=== PATIENT | female | born 1955 | race Caucasian/White ===

== ENCOUNTER 2020-04-14 09:35 | Inpatient (IN) | payer MEDICARE ==
[2020-03-04 11:16] LABS: BILIRUBIN NEGATIVE (NEGATIVE); KETONE NEGATIVE (NEGATIVE); NITRITE NEGATIVE (NEGATIVE); UROBILINOGEN NORMAL mg/dL (< 2)
[2020-03-04 13:27] LABS: BASOPHILS 0.6 % (0-2); EOSINOPHILS 2.1 % (0-7); HEMATOCRIT 45.5 % (36.0-48.0); HEMOGLOBIN 14.4 g/dL (12-16); LYMPHOCYTES 26.7 % (15-50); MCH 30.1 pg (26.0-34.0); MCHC 31.6 g/dL (31.0-37.0); MCV 95.2 fL (80.0-100.0); MEAN PLATELET VOLUME 11.5 fL (7.4-10.4); MONOCYTES 13.9 % (2-11); NEUTROPHIL ABS# 1.91 10x3/uL (1.56-6.13); NEUTROPHILS 56.7 % (40-80); PLATELET COUNT 227 10x3/uL (130-400); RBC 4.78 10x6/uL (4.00-5.40); RDW 14.6 % (11.5-14.5); WBC 3.4 10x3/uL (4.8-10.8)
[2020-03-04 13:39] LABS: ANION GAP 5.4 mmol/L (8-16); CALCIUM 9.5 mg/dL (8.5-10.1); CARBON DIOXIDE 32.1 mmol/L (21.0-32.0); CREATININE - SERUM 0.9 mg/dL (0.6-1.3); POTASSIUM - SERUM 3.5 mmol/L (3.5-5.1)
[2020-03-04 13:56] LABS: APTT 28.8 SECONDS (22.8-39.4); INR 1.06 (0.85-1.17); PROTIME 12.7 SECONDS (11.6-15.0)
[2020-04-10 12:15] LABS: BASOPHILS 0.5 % (0-2); EOSINOPHILS 2.9 % (0-7); HEMOGLOBIN 13.9 g/dL (12-16); IMMATURE GRANULOCYTES 0.3 % (0-5); LYMPHOCYTE ABS# 1.44 10x3/uL (1.18-3.74); LYMPHOCYTES 38.5 % (15-50); MCH 29.7 pg (26.0-34.0); MCHC 31.6 g/dL (31.0-37.0); MEAN PLATELET VOLUME 10.3 fL (7.4-10.4); MONOCYTES 13.4 % (2-11); NEUTROPHIL ABS# 1.66 10x3/uL (1.56-6.13); NEUTROPHILS 44.4 % (40-80); PLATELET COUNT 251 10x3/uL (130-400); RBC 4.68 10x6/uL (4.00-5.40); RDW 14.8 % (11.5-14.5); WBC 3.7 10x3/uL (4.8-10.8)
[2020-04-10 12:23] LABS: CALC OSMOLALITY 281 mosm/kg (275-300); CALCIUM 9.2 mg/dL (8.5-10.1); CHLORIDE - SERUM 103 mmol/L (98-107); CREATININE - SERUM 0.7 mg/dL (0.6-1.3); GLUCOSE 116 mg/dL (74-106); POTASSIUM - SERUM 3.9 mmol/L (3.5-5.1); SODIUM 140 mmol/L (136-145); UREA NITROGEN 17 mg/dL (7-18); eGFR NON AFRICAN AMERICAN 89 mL/min (90-120)
[2020-04-10 12:54] LABS: INR 1.06 (0.85-1.17); PROTIME 12.8 SECONDS (11.6-15.0)
[2020-04-10 12:55] LABS: APTT 27.5 SECONDS (22.8-39.4)
[2020-04-10 13:03] LABS: BACTERIA FEW HPF (NONE SEEN); BILIRUBIN NEGATIVE (NEGATIVE); KETONE NEGATIVE (NEGATIVE); NITRITE NEGATIVE (NEGATIVE); SQUAMOUS EPITHELIAL 0-5 HPF (0-4); UROBILINOGEN NORMAL mg/dL (< 2); WHITE CELLS - URINE RARE HPF (0-4)
[2020-04-14] VITALS (9 sets, daily range): BP systolic 104–129; BP diastolic 43–76; BMI 32.7; BMI 37.3
[~2020-04-14] VITALS: Ht 172.7 cm; Wt 111.1 kg
[~2020-04-14 09:35] MED LIST: CYMBALTA30 MG PO; CYMBALTA60 MG; PIOGLITAZONE15 MG PO; ULTRAM50 MG PO; VOLTAREN75 MG PO; [UNRECOGNIZED DRUG - OTHER]
--- NOTE | 2020-04-14 14:57 | NUR ---
CAUTERY PAD PLACED ON RIGHT THIGH. PLASMA BLADE USED ON SETTING 6/8. AQUAMANTYS USED ON SETTING 170. CAUTERY PAD LOT# [id number] EXP. 08/07/2021
--- NOTE | 2020-04-14 16:27 | NUR ---
PATIENT STATES PAIN IS 8/10 STILL AFTER 2 MG OF DILAUDED. KEEPS ASKING WHEN THE PAIN MEDICINE WILL KICK IN. EDUCATED THAT 2 MG OF DILAUDED IS A LOT OF PAIN MEDICINE AND SHE MUST BE MONITORED FOR RESP DEPRE
--- NOTE | 2020-04-14 16:45 | NUR ---
RECEIVED TO ROOM 1210 A/O X3. C/O INTENSE PAIN TO LEFT KNEE. ICE APPLIED TO AREA. WILL MONITOR. SKIN INTACT EXCEPT INCISION TO LEFT KNEE WHICH HAS A DRY INTACT DRESSING IN PLACE.
--- NOTE | 2020-04-14 18:18 | NUR ---
ATE MOST OF SUPPER TRAY. CONTINUES TO C/O PAIN TO LEFT KNEE. PLACED IN CPM AT THIS TIME. AT BEDSIDE.
--- NOTE | 2020-04-14 18:53 | NUR ---
PATIENT RESTING IN BED WITH NO S/S OF DISTRESS. GUEST AT BEDSIDE. VSS. PATIENT REQUESTED PAIN MED WHEN DUE AND DENIES OTHER NEEDS AT THIS TIME. BED IN LOWEST POSITION, CALL LIGHT IN REACH, BED ALARM ON. ENCOURAGED PATIENT TO CALL WITH NEEDS.
--- NOTE | 2020-04-14 21:51 | NUR ---
ADMINISTERED MEDS PER ORDERS. PATIENT RENETTA WELL. ENCOURAGED TO CALL WITH NEEDS.
[2020-04-15 00:04] VITALS: BP 116/63
[2020-04-15 04:57] VITALS: BP 106/61
[2020-04-15 07:36] LABS: BASOPHILS 0 % (0-2); EOSINOPHILS 0 % (0-7); HEMATOCRIT 36.8 % (36.0-48.0); HEMOGLOBIN 11.8 g/dL (12-16); IMMATURE GRANULOCYTES 0.1 % (0-5); LYMPHOCYTE ABS# 0.87 10x3/uL (1.18-3.74); LYMPHOCYTES 12.3 % (15-50); MCHC 32.1 g/dL (31.0-37.0); MCV 93.6 fL (80.0-100.0); MEAN PLATELET VOLUME 10.6 fL (7.4-10.4); MONOCYTES 10.5 % (2-11); NEUTROPHIL ABS# 5.45 10x3/uL (1.56-6.13); NEUTROPHILS 77.1 % (40-80); PLATELET COUNT 249 10x3/uL (130-400); RBC 3.93 10x6/uL (4.00-5.40); RDW 14.7 % (11.5-14.5); WBC 7.1 10x3/uL (4.8-10.8)
[2020-04-15 07:43] LABS: ALBUMIN 2.8 g/dL (3.4-5.0); ALKALINE PHOSPHATASE 83 U/L (30-120); ALT (SGPT) 30 U/L (10-68); BILIRUBIN - TOTAL 0.28 mg/dL (0.2-1.3); CALC OSMOLALITY 278 mosm/kg (275-300); CALCIUM 8.4 mg/dL (8.5-10.1); CARBON DIOXIDE 27.5 mmol/L (21.0-32.0); CHLORIDE - SERUM 104 mmol/L (98-107); CREATININE - SERUM 0.7 mg/dL (0.6-1.3); GLUCOSE 150 mg/dL (74-106); MAGNESIUM - SERUM 1.9 mg/dL (1.8-2.4); POTASSIUM - SERUM 3.8 mmol/L (3.5-5.1); PROTEIN - SERUM 5.9 g/dL (6.4-8.2); SODIUM 138 mmol/L (136-145); UREA NITROGEN 12 mg/dL (7-18); eGFR NON AFRICAN AMERICAN 89 mL/min (90-120)
--- NOTE | 2020-04-15 07:45 | NUR ---
PT SITTING UP IN BED WITH CPM IN PLACE. NO ACUTE DISTRESS NOTED. PT DOES VOICE PAIN /10 AT THIS TIME. PAIN MED ADMINISTERED AT THIS TIME PER MD ORDERS. IV TO RIGHT FOREARM WITH 1/2 NS @ 50ML/HR INFUSING VIA PUMP. SITE WITHOUT REDNESS OR EDEMA. DRESSING C/D/I TO LEFT LOWER EXTREMITY. PALPABLE PULSES, EXTREMITY WARM TO TOUCH. ASSISTED PT TO BSC AND BACK TO BED WITH WALKER. MINIMAL ASSISTANCE NEEDED. PT DENIES FURTHER NEEDS AT THIS TIME. CL WITHIN REACH. ENCOURAGED TO CALL WITH NEEDS. CONTINUE POC
[2020-04-15 08:00] VITALS: BP 118/81
--- NOTE | 2020-04-15 08:19 | OP ---
PATIENT NAME: JOSE DAVID LAROSE MEDICAL RECORD: [id number] :53 LOCATION:D. D.1210 ADMISSION DATE:04/14/20 SURGEON: TOD GALLO DO DATE OF OPERATION: 04/14/2020 PROCEDURE PERFORMED: Left total knee arthroplasty. PREOPERATIVE DIAGNOSIS: Left knee osteoarthritis. POSTOPERATIVE DIAGNOSIS: Left knee osteoarthritis. INDICATIONS: Ms. Larose is a 65-year-old female who has had left knee pain for quite some time. She was scheduled for surgery a few months ago, but had Covid and had to cancel it. The patient was aware of the risks including infection, bleeding, damage to nerves or vessels in the area, continued pain, loosening, failure of implants, fracture, blood clots and even . She signed the consent. SURGEON: Tod Gallo DO DESCRIPTION OF PROCEDURE: The patient received a block by anesthesia in preoperative area. She was given spinal also. The left lower extremity was prepped and draped. She was then positioned and sedated slightly given 2 grams of Ancef and 80 mg gentamicin and a gram of TXA. She was sedated as the spinal was working well. The left lower extremity was then prepped and draped in sterile fashion. Time out was performed. Everyone was in agreement with the correct side, site, patient, and procedure. I then began by marking out the anterior incision and covered in Ioban. I then used a 10-blade scalpel to go through the skin and then did a fresh 10 blade through a medial parapatellar approach through the capsule. I then coagulated any bleeding at that time, removed part of the fat pad, everted the patella and milled it down and drilled it and cemented 29 patella, held it into place with a squeeze, removed the excess cement. We then exposed the femur, removed the ACL, entered the femoral canal with the drill, brought in the intramedullary guide and cut the distal femur. I then exposed the proximal tibia and cut it off an extramedullary guide, removed the tibial plateau that I cut and the menisci with the knee in extension. I then put the 10 extension block. It fit very well, coagulated any bleeding with Aquamantys. We removed the pins, flexed the knee upsized to be 8, put 8 four-in-one cutting block on the femur and cut the femur. I then removed that bone and then exposed the tibia. I sized the tibia to be an E. There was a small defect in the anterior tibia due to the lamina center line cutter operator, used to maneuver the menisci and then this was noted. I then sized it to be an E, pinned the tray into place, put on the femoral trial and put a 10 poly in between and then went up to 12; 12 fit very well. She had good range of motion in flexion and extension, had good varus to valgus stability. I then drilled the lug holes in the femur, removed the trials and drilled the lug holes with the tibia TM. I then impacted in the E tibia into place and the femur also into place and put a 12 poly in between and then packed in some bone graft from her own bone into the small defect in the anterior tibia. That was just under the tibial tray and then irrigated with a 10% povidine-iodine and 500 mL of normal saline solution and let it sit for a few minutes and irrigated out thoroughly with normal saline. Tremaine Fair, certified surgical library services assistant then put in Earline and vancomycin and tobramycin powder. Closed the capsule with #1 Vicryl in yycggx-nr-jnlsd fashion and running Quill stitch on the capsule and then closed the skin with 2-0 Vicryl in an inverted fashion, put on Marianela Moralez, OPERATIVE REPORT [id number] JOSE DAVID LAROSE 4 x 4s, ABD, Webril, Sean wrap, and FRANK hose stockings. She was then awakened and taken to recovery in stable condition. Blood loss approximately 300 mL. COMPLICATIONS: None. TRANSINT:[id number] Voice Confirmation ID: [id number] DOCUMENT ID: [id number] TOD GALLO DO at 0819 CC: [id number] DICTATION DATE: 04/14/20 153 SERVICE STATION CASHIER: 04/15/20 0040 ADM IN [facility] [address] [place] [address]
[2020-04-15 11:18] VITALS: BP 115/56
--- NOTE | 2020-04-15 11:25 | NUR ---
PT SITTING UP IN CHAIR AT BEDSIDE, VISITING WITH SPOUSE. NO ACUTE DISTRESS NOTED. REPORTS PAIN 7/10 AT THIS TIME. PAIN MEDICATION ADMINISTERED PER ORDERS. DENIES FURTHER NEEDS AT THIS TIME. CL WITHIN REACH. ENCOURAGED TO CALL WITH NEEDS.
[2020-04-15 12:34] VITALS: Ht 172.7 cm; Wt 111.1 kg
[2020-04-15] MEDS ORDERED: ELIQUIS2.5 MG PO (14:01)
[2020-04-15] MEDS ORDERED: PERCOCET 10-321 EAC1 PO (14:02)
--- NOTE | 2020-04-15 20:26 | MORECARE ---
CASE MANAGEMENT DISCHARGE SUMMARY PATIENT: JOSE DAVID KENNEDY UNIT: [id number] ADM DATE: 04/14/20 AGE: 65 : 54 SEX: F ROOM/BED: D.1210 AUTHOR: ELLA CHAUHAN PHYSICIAN: REFERRING PHYSICIAN: CORNELIUS GALLO DO DATE OF SERVICE: 04/15/20 Discharge Plan Patient Name: JOSE DAVID KENNEDY [facility] [facility] 1955 Planned Disposition: Home with Home Health Anticipated Discharge Date: Discharge Date: 04/15/2020 Expected LOS: Initial Reviewer: [email or web address] Initial Review Date: 04/14/2020 Generated: 04/15/20 9:25 pm Patient Name: JOSE DAVID KENNEDY Page [id number] at 2025 All edits/amendments must be made on the electronic document DICTATION DATE: 04/15/202024 RIVER TESTER: YOCASTA 04/15/202024 RPT#: [id number] DC DATE:04/15/20 STATUS: DIS IN [facility] [address] [place] [address] END OF REPORT
--- NOTE | 2020-04-15 20:33 | MORECARE ---
CASE MANAGEMENT DISCHARGE SUMMARY PATIENT: JOSE DAVID KENNEDY UNIT: [id number] ADM DATE: 04/14/20 AGE: 65 : 54 SEX: F ROOM/BED: D.1210 AUTHOR: TIEN,DOC PHYSICIAN: REFERRING PHYSICIAN: CORNELIUS GALLO DO DATE OF SERVICE: 04/15/20 Discharge Plan Patient Name: JOSE DAVID KENNEDY Facility[facility]:[place] : 1955 Planned Disposition: Home with Home Health Anticipated Discharge Date: Discharge Date: 04/15/2020 Expected LOS: Initial Reviewer: [email or web address] Initial Review Date: 04/14/2020 Generated: 04/15/20 9:32 pm Comments DCP- Discharge Planning Updated by [email or web address]: Ritika Garcia on 04/15/20 7:[address] Patient Name: JOSE DAVID KENNEDY Admission Status: Elective Accout number: [id number] Admission Date: 04-14-2020 : 1955 Admission Diagnosis: Attending: CORNELIUS GALLO Current LOS: 1 Anticipated DC Date: Planned Disposition: Home with Home Health Primary Insurance: MEDICARE A & B Discharge Planning Comments: CM spoke with patient to complete initial dc planning assessment. CM educated patient on the CM role and verbal consent given by patient to complete assessment. Patient lives at home with family. Patient is independent. At discharge patient plans to return home and feels this is a safe discharge. CM discussed availability of home health, rehab services, and medical equipment. Patient states that she wants [facility] for therapy FELICITAS signed. Patient will have family to transport home. Patient denied known discharge needs at this time. CM will continue to follow and will assist as needed with dc plans/needs. Acoustical Installer: Ritika Garcia DCPIA - Discharge Planning Initial Assessment Updated by [email or web address]: Ritika Garcia on 04/15/20 8:28 pm * Is the patient Alert and Oriented? Yes * How many steps to enter\exit or inside your home? ramp * PCP YANI * Pharmacy [facility] * Preadmission Environment Home with Family * ADLs Independent * Equipment Elevated Tol[place] Seat * Other Equipment WALKER, W/C, CPM, ICE PACK * List name and contact numbers for known caregivers / representatives who currently or will assist patient after discharge: EVERTON KENNEDY - SPOUSE - [phone] * Verbal permission to speak to the caregivers and representatives has been obtained from the patient. Yes * Community resources currently utilized None * Additional services required to return to the preadmission environment? No * Can the patient safely return to the preadmission environment? Yes * Has this patient been hospitalized within the prior 30 days at any hospital? No Last DP export: 04/15/20 7:26 p Patient Name: JOSE DAVID KENNEDY Page [id number] at 2033 All edits/amendments must be made on the electronic document DICTATION DATE: 04/15/202031 AUTOMATIC CIGAR WRAPPER TENDER: YOCASTA 04/15/202031 RPT#: [id number] DC DATE:04/15/20 STATUS: DIS IN [facility] [address] [place] [address] END OF REPORT
--- NOTE | 2020-04-15 20:39 | MORECARE ---
CASE MANAGEMENT DISCHARGE SUMMARY PATIENT: JOSE DAVID KENNEDY UNIT: [id number] ADM DATE: 04/14/20 AGE: 65 : 54 SEX: F ROOM/BED: D.1210 AUTHOR: TIENDOC PHYSICIAN: REFERRING PHYSICIAN: CORNELIUS GALLO DO DATE OF SERVICE: 04/15/20 Discharge Plan Patient Name: JOSE DAVID KENNEDY Facility: [facility]:[place] : 1955 Planned Disposition: Home with Home Health Anticipated Discharge Date: Discharge Date: 04/15/2020 Expected LOS: Initial Reviewer: [email or web address] Initial Review Date: 04/14/2020 Generated: 04/15/20 9:39 pm Comments DCP- Discharge Planning Updated by [email or web address]: Ritika Garcia on 04/15/20 7:[address] CM called and faxed referral to [facility] [place] office will be covering the patient's area [phone]. They plan to eval and admit on 04/16/20. [employer] 30 day free card given for medication assistance. Denies any needs. DCP- Discharge Planning Updated by [id number]: Ritika Garcia on 04/15/20 7:[address] Patient Name: JOSE DAVID KENNEDY Admission Status: Elective Accout number: [id number] Admission Date: 04-14-2020 : 1955 Admission Diagnosis: Attending: CORNELIUS GALLO Current LOS: 1 Anticipated DC Date: Planned Disposition: Home with Home Health Primary Insurance: MEDICARE A & B Discharge Planning Comments: CM spoke with patient to complete initial dc planning assessment. CM educated patient on the CM role and verbal consent given by patient to complete assessment. Patient lives at home with family. Patient is independent. At discharge patient plans to return home and feels this is a safe discharge. CM discussed availability of home health, rehab services, and medical equipment. Patient states that she wants [facility] for therapy FELICITAS signed. Patient will have family to transport home. Patient denied known discharge needs at this time. CM will continue to follow and will assist as needed with dc plans/needs. Automated Equipment Engineer Technician: Ritika Garcia DCPIA - Discharge Planning Initial Assessment Updated by [email or web address]: Ritika Garcia on 04/15/20 8:28 pm * Is the patient Alert and Oriented? Yes * How many steps to enter\exit or inside your home? ramp * PCP YANI * Pharmacy [facility] * Preadmission Environment Home with Family * ADLs Independent * Equipment Elevated [place] Seat * Other Equipment WALKER, W/C, CPM, ICE PACK * List name and contact numbers for known caregivers / representatives who currently or will assist patient after discharge: [facility] KENNEDY - [facility] - [phone] * Verbal permission to speak to the caregivers and representatives has been obtained from the patient. Yes * Community resources currently utilized None * Additional services required to return to the preadmission environment? No * Can the patient safely return to the preadmission environment? Yes * Has this patient been hospitalized within the prior 30 days at any hospital? No Last DP export: 04/15/20 7:33 p Patient Name: JOSE DAVID KENNEDY Page [id number] at 2038 All edits/amendments must be made on the electronic document DICTATION DATE: 04/15/202038 SOYBEAN SPECIALT[employer] COOK: YOCASTA 04/15/202038 RPT#: [id number] DC DATE:04/15/20 STATUS: DIS IN [facility] [address] [place] [address] END OF REPORT
== END 2020-04-15 17:16 | disposition home health service (06) | DRG 470 ==
LOC: D.OPS 09:35 → D.M3 16:54
PROVIDERS: Family Medicine; ADMIT Orthopaedic Surgery; ATTEND Orthopaedic Surgery
PROC: 0SRD0J9 Replacement of Left Knee Joint with Synthetic Substitute, Cemented, Open Approach (ICD-10-PCS; principal; 2020-04-14 11:45)
DX: M17.12 Unilateral primary osteoarthritis, left knee (principal); E11.65 Type 2 diabetes mellitus with hyperglycemia; G89.29 Other chronic pain; M54.9 Dorsalgia, unspecified; F41.8 Other specified anxiety disorders; K21.9 Gastro-esophageal reflux disease without esophagitis